=== PATIENT | female | born 1955 | race Caucasian/White ===

== ENCOUNTER 2016-08-08 21:58 | Emergency (ER) | payer BC ==
[~2016-08-08] VITALS: Ht 162.6 cm; Wt 68.2 kg
[~2016-08-08 21:58] MED LIST: BUPROBAN150 MG PO; GLUCOPHAGE XR750 MG PO; HCTZ12.5TAB PO; ZOCOR 40MG40 MG PO
[2016-08-08 22:01] VITALS: TEMP 98.4
[2016-08-08] MEDS ORDERED: SINGULAIR 110 MG/TAB PO (22:34)
[2016-08-08] MEDS ORDERED: ZYRTEC 10MG10 MG PO (22:35)
[2016-08-08] MEDS ORDERED: NORCO 325 MG-51 TAB PO (22:57)
[2016-08-08 23:13] VITALS: BP 154/76; PULSE 78
== END 2016-08-08 23:19 | disposition home or self-care (01) ==
LOC: COL.ER 21:58
DX: S63.501A Unspecified sprain of right wrist, initial encounter (principal); S09.90XA Unspecified injury of head, initial encounter; W01.198A Fall on same level from slipping, tripping and stumbling with subsequent striking against other object, initial encounter; Y92.009 Unspecified place in unspecified non-institutional (private) residence as the place of occurrence of the external cause; I10 Essential (primary) hypertension; E11.9 Type 2 diabetes mellitus without complications; Z79.84 Long term (current) use of oral hypoglycemic drugs